=== PATIENT | female | born 1960 | race Caucasian/White ===

== ENCOUNTER 2020-04-21 06:36 | Day surgery (SDC) | payer BC ==
[2020-04-21] MEDS ORDERED: Midazolam 1 MG/ML 2 ML SDV IV ONE (06:37)
[2020-04-21] MEDS ORDERED: Propofol 200 MG/20 ML SDV IV ONE (06:37)
[2020-04-21] MEDS ORDERED: Sodium Chloride 0.9% 10 ML Syringe FLUSH PRN (06:45)
[2020-04-21] MEDS ORDERED: Lactated Ringers 1,000 ML IV SCH (06:45)
--- NOTE | 2020-04-21 08:20 | PCM.OPNOTE ---
- General Post-Op/Procedure Note Date of Surgery/Procedure: 04/21/20 Operative Procedure(s): c scope with biopsy Findings: ascending colon polyp rectal polyp x2 Pre Op Diagnosis: personal hx of colon polyps Post-Op Diagnosis: ascending colon polyp. rectal polyp x2 Anesthesia Technique: MAC Primary Surgeon: Guy Sharpe Anesthesia Provider: Fatoumata Pedro Pathology: ascending colon polyp rectal polyp x2 Complications: None Condition: Good Free Text/Narrative:: see dictation
[2020-04-21 09:09] VITALS: BP 93/63; PULSE 77
--- NOTE | 2020-04-21 12:58 | OR ---
DATE OF OPERATION: 04/21/2020 SURGEON: Guy Sharpe MD PROCEDURE PERFORMED: Colonoscopy with cold forceps biopsy. PREOPERATIVE DIAGNOSIS: Personal history of colon polyps. POSTOPERATIVE DIAGNOSIS: Ascending colon polyp and rectal polyps x2. INDICATIONS FOR PROCEDURE: This is a 59-year-old white female who presents for her 5-year followup colonoscopy, had multiple hyperplastic polyps removed 5 years ago as well as an adenomatous polyp. She is currently without complaints. DESCRIPTION OF OPERATION: After an excellent IV sedation was administered, digital rectal exam was performed. No marked abnormality was noted. Flexible colonoscope was inserted and advanced to the cecum. Prep was excellent. The following findings were noted: Ascending colon, small adenomatous-appearing polyp, biopsied with cold biopsy forceps and sent for permanent. Transverse colon, unremarkable. Descending colon, unremarkable. Sigmoid, unremarkable. Rectum, just above the anal verge, 2 hyperplastic polyps were encountered. These were biopsied and sent for permanent. The patient tolerated the procedure well, was taken to recovery room. Results will be sent via letter. /[id number] /NICOLE
== END 2020-04-21 09:18 | disposition home or self-care (01) ==
LOC: FB.SDS 06:36
PROVIDERS: ATTEND Surgery
DX: Z12.11 Encounter for screening for malignant neoplasm of colon (principal); D12.8 Benign neoplasm of rectum; E03.9 Hypothyroidism, unspecified; J44.9 Chronic obstructive pulmonary disease, unspecified; Z79.899 Other long term (current) drug therapy; Z98.890 Other specified postprocedural states
CPT/HCPCS: 45380; J2250; J2704; J7120; 00811-QZ; 88305

== ENCOUNTER 2025-05-26 07:55 | Day surgery (SDC) | payer BC, MEDICARE ==
[2025-05-26] MEDS ORDERED: Propofol 200 MG/20 ML SDV IV ONE (07:56)
[2025-05-26] MEDS ORDERED: Sodium Chloride 0.9% 10 ML Syringe FLUSH PRN (08:00)
[2025-05-26 09:03] VITALS: BP 117/83; PULSE 84
[2025-05-26] MEDS: Lactated Ringers 1,000 ML IV SCH (09:22)
== END 2025-05-26 11:25 | disposition home or self-care (01) ==
LOC: FB.SDS 07:55
PROVIDERS: ATTEND Surgery
DX: Z12.11 Encounter for screening for malignant neoplasm of colon (principal); K62.1 Rectal polyp; E78.00 Pure hypercholesterolemia, unspecified; F17.210 Nicotine dependence, cigarettes, uncomplicated; Z79.899 Other long term (current) drug therapy; Z86.0101 Personal history of adenomatous and serrated colon polyps
CPT/HCPCS: 45384; 88305; A9270; J2003; J2704; J7120; 00811